=== PATIENT | male | born 1995 | race African-American/Black ===

== ENCOUNTER 2018-11-27 15:00 | Emergency (ER) | payer SELFPAY ==
[~2018-11-27] VITALS: Ht 182.9 cm; Wt 102.0 kg
[2018-11-27] MEDS ORDERED: CEFTRIAXONE SODIUM 250 MG/VIAL IM ONE (16:30)
[2018-11-27] MEDS ORDERED: AZITHROMYCIN 500 MG TABLET PO ONE (16:30)
[2018-11-27 16:35] LABS: CLARITY URINE CLOUDY (CLEAR); COLOR URINE YELLOW (YELLOW); KETONES URINE TRACE (NEGATIVE); LEUKOCYTE ESTERASE URINE 3+ (NEGATIVE); NITRITE URINE NEGATIVE (NEGATIVE); OCCULT BLOOD URINE NEGATIVE (NEGATIVE); PH URINE 6.5 (4.5-8.0); PROTEIN URINE TRACE (NEGATIVE); SPECIFIC GRAVITY URINE 1.033 (1.005-1.030)
[2018-11-27] MEDS ORDERED: LIDOCAINE HCL/PF 1% 10 MG/ML 5ML VIAL IJ ONE (17:00)
[2018-11-27 19:12] VITALS: BP 155/77
== END 2018-11-27 19:14 | disposition home or self-care (01) ==
LOC: ER 15:00
DX: N39.0 Urinary tract infection, site not specified (principal); A64 Unspecified sexually transmitted disease; F17.200 Nicotine dependence, unspecified, uncomplicated; F12.10 Cannabis abuse, uncomplicated
CPT/HCPCS: 81003; 87086; 96372; 99283; J0696; J3490

== ENCOUNTER 2019-08-05 05:23 | Emergency (ER) | payer SELFPAY ==
[~2019-08-05] VITALS: Ht 182.9 cm; Wt 102.6 kg
[2019-08-05 06:33] LABS: CLARITY URINE CLOUDY (CLEAR); COLOR URINE YELLOW (YELLOW); KETONES URINE NEGATIVE (NEGATIVE); LEUKOCYTE ESTERASE URINE 2+ (NEGATIVE); NITRITE URINE NEGATIVE (NEGATIVE); OCCULT BLOOD URINE NEGATIVE (NEGATIVE); PROTEIN URINE NEGATIVE (NEGATIVE)
[2019-08-05] MEDS ORDERED: CEFTRIAXONE SODIUM 250 MG/VIAL IM ONE (07:00)
[2019-08-05] MEDS ORDERED: LIDOCAINE HCL/PF 1% 10 MG/ML 5ML VIAL IJ ONE (07:00)
[2019-08-05] MEDS ORDERED: AZITHROMYCIN 500 MG TABLET PO ONE (07:00)
[2019-08-05 07:55] VITALS: BP 154/89
== END 2019-08-05 08:20 | disposition home or self-care (01) ==
LOC: ER 05:23
DX: N34.2 Other urethritis (principal); F12.90 Cannabis use, unspecified, uncomplicated
CPT/HCPCS: 81003; 87086; 96372; 99283; J0696; J3490

== ENCOUNTER 2020-01-15 10:27 | Emergency (ER) | payer SELFPAY ==
[~2020-01-15] VITALS: Ht 182.9 cm; Wt 102.0 kg
[2020-01-15] MEDS ORDERED: IBUPROFEN 600MG TABLET PO ONE (11:30)
[2020-01-15 11:59] VITALS: BP 118/85
== END 2020-01-15 12:01 | disposition home or self-care (01) ==
LOC: ER 10:27
DX: M54.5 Low back pain (principal); I10 Essential (primary) hypertension
CPT/HCPCS: 99282